=== PATIENT | female | born 1980 | race Asian ===

== ENCOUNTER 2020-09-19 09:59 | Outpatient (RCR) | payer OTHER, SELFPAY | END 2020-11-20 23:59 | LOC: IMMUN 09:59 | PROVIDERS: Visit Provider Family Medicine | DX: Z23 Encounter for immunization (principal) | CPT/HCPCS: 0001A; 0002A; 91300 ==

== ENCOUNTER 2022-02-22 10:43 | Emergency (ER) | payer BC, SELFPAY ==
[2022-02-22 10:49] VITALS: BP 136/72; PULSE 79; RESP 18; TEMP 36.4; O2SAT 100; BMI 31.8
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
== END 2022-02-22 12:25 | disposition home or self-care (01) ==
PROVIDERS: Emergency Provider Emergency Medicine; Visit Provider Emergency Medicine
DX: S16.1XXA Strain of muscle, fascia and tendon at neck level, initial encounter (principal); V49.40XA Driver injured in collision with unspecified motor vehicles in traffic accident, initial encounter
CPT/HCPCS: 72040; 99284

== ENCOUNTER 2024-03-30 13:54 | Emergency (ER) | payer BC, SELFPAY ==
[2024-03-30 13:55] VITALS: BP 131/82; PULSE 95; RESP 16; TEMP 36.4; O2SAT 100; BMI 36.2
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
[2024-03-30 14:52] VITALS: O2SAT 99
== END 2024-03-30 14:57 | disposition home or self-care (01) ==
PROVIDERS: Emergency Provider Emergency Medicine; Visit Provider Emergency Medicine
DX: S20.212A Contusion of left front wall of thorax, initial encounter (principal); V43.52XA Car driver injured in collision with other type car in traffic accident, initial encounter
CPT/HCPCS: 71046; 99282